=== PATIENT | male | born 1960 | race Caucasian/White ===

== ENCOUNTER 2024-09-09 18:45 | Emergency (ER) | payer OTHER ==
[~2024-09-09] VITALS: Ht 180.3 cm; Wt 97.5 kg
[2024-09-09 19:24] VITALS: BP 134/70; TEMP 98.4; O2SAT 99
[2024-09-09] MEDS ORDERED: IBUPROFEN 400 MG TABLET ONE (19:33)
[2024-09-09] MEDS: IBUPROFEN 400 MG TABLET PO ONE (19:35)
== END 2024-09-09 20:41 | disposition home or self-care (01) ==
LOC: ER 18:48 → EDBD 18:48 → ER 20:41
DX: S50.12XA Contusion of left forearm, initial encounter (principal); Z60.2 Problems related to living alone; V43.52XA Car driver injured in collision with other type car in traffic accident, initial encounter; Y93.89 Activity, other specified; Y92.410 Unspecified street and highway as the place of occurrence of the external cause; Y99.8 Other external cause status
CPT/HCPCS: 73090-TC; 73130-TC